=== PATIENT | female | born 1955 | race Caucasian/White ===

== ENCOUNTER 2016-06-18 09:10 | Outpatient (CLI) | payer OTHER | END 2016-06-18 09:11 | LOC: LAB 09:10 | PROVIDERS: ATTEND Internal Medicine | DX: R53.83 Other fatigue (principal) | CPT/HCPCS: 36415; 82746; 84439; 84443 ==

== ENCOUNTER 2016-12-08 01:33 | Emergency (ER) | payer OTHER ==
[2016-12-08 02:16] LABS: BASOPHILS % 0.6 (0.0-1.5); EOSINOPHILS % 2.1 % (0.0-6.8); MEAN CORPUSCULAR VOLUME 84.4 fl (80.0-100.0); MONOCYTES % 0.6 % (0.0-11.0); NEUTROPHILS # 7.5 # k/uL (1.4-7.7)
[2016-12-08 02:25] LABS: eGFR (African) > 60; eGFR (Non-African) > 60
[2016-12-08] MEDS ORDERED: MORPHINE SULFATE 4 MG/ML DISP.SYRIN IVP ONE (02:39)
--- NOTE | 2016-12-08 03:08 | ED Physician Documentation ---
General Adult - HISTORIAN Historian: patient - HPI Stated Complaint: SOA/Reproducible CP Chief Complaint: General Adult Onset: hours Further Comments: yes (61 year old female patient presents with complaints of shortness of breath and chills. Patient states she took her [place] [employer], concerned she is having a reaction. Patient reports having a hemorrhoidectomy on Saturday at [facility]. State she has not felt well since surgery. BM today. C/ O Pain 11/01) - ROS CONST: no problems EYES/ENT: none CVS/RESP: none GI/: none, other (rectal pain) MS/SKIN/LYMPH: none NEURO/PSYCH: denies: headache, fainting, dizziness, tingling, numbness, difficulty walking, difficulty with speech, anxiety, depression, other - PAST HX Past History: asthma Allergies/Adverse Reactions: Allergies Allergy/AdvReac Type Severity Reaction Status Date / Time codeine AdvReac Tremors Verified 12/08/16 02:23 Home Medications: Ambulatory Orders Medication Instructions Recorded Hydrocodone/Acetaminophen 5 mg PO PRN PRN 12/08/16 [Hydrocodon-Acetaminophen 5-325] Ketorolac Tromethamine 10 mg PO PRN PRN 12/08/16 - SOCIAL HX Smoking History: non-smoker - FAMILY HX Family History: No - VITAL SIGNS Vital Signs: Vital Signs Temp Pulse Resp BP Pulse Ox 99.1 F 93 H 26 H 151/60 97 12/08/16 01:33 12/08/16 02:27 12/08/16 01:33 12/08/16 01:33 12/08/16 02:27 - REVIEWED ASSESSMENTS Nursing Assessment Reviewed: Yes Vitals Reviewed: Yes Progress - Progress Progress: Reviewed lab and xray results with patient and son, questions answered. Lasix 20 mg IV given for mild CHF. Patient requested prescription for PO morphine. Explained [employer] could not write for PO morphine. Will discharge with ultram po as patient does not like [place] and has allergy to codeine. Recommended f/u with surgeon if ultram did not control pain. ED Results Lab/Radiology - Lab Results Lab Results: Lab Results 12/08/16 12/08/16 02:06 02:06 WBC 8.90 K/ul K/ul (4.00-12.00) RBC 4.20 M/ul M/ul (3.90-5.20) Hgb 11.8 g/dL L g/dL (12.0-16.0) Hct 35.5 % % (34.5-46.5) MCV 84.4 fl fl (80.0-100.0) MCH 28.0 pg pg (28.0-34.0) MCHC 33.2 g/dL g/dL (30.0-36.0) RDW 14.0 % % (11.3-14.3) Plt Count 212 K/mm3 K/mm3 (130-400) Neut % (Auto) 83.9 % H % (39.0-79.0) Lymph % (Auto) 12.6 % L % (16.0-50.0) Porter % (Auto) 0.6 % % (0.0-11.0) Eos % (Auto) 2.1 % % (0.0-6.8) Baso % (Auto) 0.6 (0.0-1.5) Neut # (Auto) 7.5 # k/uL # k/uL (1.4-7.7) Lymph # (Auto) 1.1 # k/uL # k/uL (0.6-4.0) Porter # (Auto) 0.1 # k/uL # k/uL (0.0-0.9) Eos # (Auto) 0.2 # k/uL # k/uL (0.0-0.6) Baso # (Auto) 0.1 # k/uL # k/uL (0.0-0.5) Reactive Lymphs % 0.3 % % (0.0-5.0) Reactive Lymphs # 0.0 # k/uL # k/uL (0.0-0.8) Sodium 140 mmol/L mmol/L (136-145) Potassium 3.8 mmol/L mmol/L (3.5-5.0) Chloride 104 mmol/L mmol/L (98-110) Carbon Dioxide 22 mmol/L mmol/L (20-32) BUN 17 mg/dL mg/dL (10-26) Creatinine 0.8 mg/dL mg/dL (0.4-1.5) Estimated Creat Clear 161 Est GFR ( Amer) > 60 (60 - ) Est GFR (Non-Af Amer) > 60 (60 - ) Glucose 170 mg/dL H mg/dL (70-99) Calcium 9.5 mg/dL mg/dL (8.5-10.5) Total Bilirubin 0.6 mg/dL mg/dL (0.2-1.2) AST 24 U/L U/L (0-41) ALT 25 U/L U/L (0-45) Alkaline Phosphatase 75 U/L U/L (46-116) Total Protein 6.9 g/dL g/dL (6.0-8.5) Albumin 4.4 g/dL g/dL (3.0-5.5) - Orders Orders: ED Orders Category Date Time Status Continuous EKG monitoring Q1H Care 12/08/16 02:27 Active Continuous Pulse Oximetry Q1H Care 12/08/16 02:[address] IV Lock 1T Care 12/08/16 01:49 Active CHEST 1 VIEW [RAD] Stat Exams 12/08/16 01:49 Taken BNP [NT-proBNP] Stat Lab 12/08/16 02:47 Received CBC/PLATELET/DIFF Stat Lab 12/08/16 02:06 Completed CMP Stat Lab 12/08/16 02:06 Completed Morphine Sulfate [DepoDUR] Med 12/08/16 02:39 Discontinued 4 mg IVP NOW ONE EKG WITH COMPARISON Stat Ther 12/08/16 02:00 Ordered General Adult Physical Exam - PHYSICAL EXAM GENERAL APPEARANCE: anxious EENT: eye inspection normal, BREANNE RESPIRATORY: no resp distress, chest non-tender, other (clear - deminished in bases) CVS: reg rate & rhythm, heart sounds normal, equal pulses, no murmur, no gallop , PMI nml, no JVD, no friction rub, 24 ABDOMEN: soft, no organomegaly, normal bowel sounds, no abdominal bruit, no distension, other (morbid obesity) SKIN: normal color, warm/dry, NR, INT, PAL, DR EXTREMITIES: non-tender, normal range of motion, no evidence of injury, no edema , J, [employer] NEURO: oriented X3, CN's nml as tested, motor nml, sensation nml, mood/affect nml Discharge Clincal Impression: Post-op pain, Status post hemorrhoidectomy CHF (congestive heart failure), NYHA class I Qualifiers: Congestive heart failure type: unspecified congestive heart failure type Qualified Code(s): I50.9 - Heart failure, unspecified Condition: Stable Disposition: 01 HOME, SELF-CARE Decision to Admit: NO Decision Time: 03:45
[2016-12-08] MEDS ORDERED: FUROSEMIDE 20 MG/2 ML VIAL IVP ONE (03:24)
[2016-12-08 05:10] VITALS: BP 119/48
--- NOTE | 2016-12-08 06:28 | Diagnostic Imaging Report ---
ANNIKA REN ([facility]) - ER [facility] [id number] [facility].[address] [address] Report Submission Date: Dec 08, 2016 2:30:33 AM CDT Patient Study Name: NEREYDA MANCILLA Date: Dec 08, 2016 2:17:37 AM CDT Modality Type: CR Gender: F Description: CHEST : 55 Institution: [facility] Physician: ANNIKA REN ([facility]IN[facility]) - ER Portable chest History: Cough and dyspnea Findings: Low lung volumes are observed, possibly related to obesity. Cardiomegaly, pulmonary vascular congestion, and hazy right basilar parenchymal opacity are observed. There is no significant pleural effusion. Cervical fusion hardware is observed. Impression: 1. Low lung volumes, possibly related to obesity. 2. Cardiomegaly and pulmonary vascular congestion. 3. Hazy right basilar opacity may represent atelectasis, infiltrate, or edema. Electronically signed on Dec 08, 2016 2:30:33 AM CDT by: Zhen CALVERT
== END 2016-12-08 03:50 | disposition home or self-care (01) ==
LOC: ED 01:33
DX: I50.9 Heart failure, unspecified (principal); G89.18 Other acute postprocedural pain
CPT/HCPCS: 71010; 80053; 83880; 85025; J1940; J2270; 96374; 96375; 99283; S1016